=== PATIENT | female | born 1995 | race American Indian/Alaskan Native ===

== ENCOUNTER 2021-01-23 14:18 | Emergency (ER) | payer MEDICAID ==
[2021-01-23] MEDS ORDERED: ONDANSETRON 4 MG/2 ML INJ IV ONE (14:26)
[2021-01-23] MEDS ORDERED: PANTOPRAZOLE 40 MG INJ IV STA (14:26)
[2021-01-23] MEDS ORDERED: SODIUM CHLORIDE 0.9% 1000 ML 1,000 ML IV ONE (14:27)
--- NOTE | 2021-01-23 14:28 | Event Note ---
ED Screening Note ED Screening Note: actively vomiting dark blood in triage hx hhernia and gerd This initial assessment/diagnostic orders/clinical plan/treatment(s) is/are subject to change based on patients health status, clinical progression and re- assessment by fellow clinical providers in the ED. Further treatment and workup at subsequent clinical providers discretion. Patient/guardian urged not to elope from the ED as their condition may be serious if not clinically assessed and managed. Initial orders include: to ER for eval
--- NOTE | 2021-01-23 14:39 | Event Note ---
ED Screening Note ED Screening Note: LMP 11/12 SHE THINKS CO R LOWER ABD PAIN NO N/V/D This initial assessment/diagnostic orders/clinical plan/treatment(s) is/are subject to change based on patients health status, clinical progression and re- assessment by fellow clinical providers in the ED. Further treatment and workup at subsequent clinical providers discretion. Patient/guardian urged not to elope from the ED as their condition may be serious if not clinically assessed and managed. Initial orders include: RO PREG/UTI
[2021-01-23 15:36] LABS: HCG Qualitative,Urine Positive (Negative)
[2021-01-23 15:44] LABS: Bacteria,Urine 1+ /HPF (Negative); Bilirubin,Urine NEG (Negative); Blood,Urine NEG (Negative); Color,Urine Yellow (Yellow); Mucus,Urine FEW /HPF; Protein,Urine <15 mg/dL mg/dL (Negative); Urobilinogen,Urine < 2.0 mg/dL (<2.0)
[2021-01-23 16:04] LABS: Hematocrit 40.3 % (30.3-42.9); Hemoglobin 13.6 gm/dl (10.1-14.3); Mean Corpuscular HGB Conc 34 % (30-34); Mean Corpuscular Volume 96 fl (79-97); Platelet Count 285 K/mm3 (140-440); Red Cell Distribution Width 14.6 % (13.2-15.2)
--- NOTE | 2021-01-23 17:03 | Ultrasound Report ---
US OB <= 14 weeks fetus, US OB transvaginal INDICATION / CLINICAL INFORMATION: cramping . TECHNIQUE: Transvaginal. COMPARISON: None available. FINDINGS: UTERUS: Appears within normal limits. 2.4 cm uterine lesion most consistent with fibroid. GESTATIONAL SAC: Intrauterine gestational sac is present. EMBRYO/FETUS: - [place]-Rump Length = 1.5 cm - Heart Rate, beats per minute (if present) = no heart tones are identified on transvagin al scanning. ADNEXA: No significant abnormality. FREE FLUID: None. ADDITIONAL FINDINGS: None. IMPRESSION: 1. pole is present which measures greater than 7 mm without heart tones which is consiste nt with failed early . Signer Name: Epi Craven MD Signed: 01/23/2021 4:58 PM Workstation Name: [id number]
--- NOTE | 2021-01-23 17:03 | Ultrasound Report ---
US OB <= 14 weeks fetus, US OB transvaginal INDICATION / CLINICAL INFORMATION: cramping . TECHNIQUE: Transvaginal. COMPARISON: None available. FINDINGS: UTERUS: Appears within normal limits. 2.4 cm uterine lesion most consistent with fibroid. GESTATIONAL SAC: Intrauterine gestational sac is present. EMBRYO/FETUS: - [place]-Rump Length = 1.5 cm - Heart Rate, beats per minute (if present) = no heart tones are identified on transvagin al scanning. ADNEXA: No significant abnormality. FREE FLUID: None. ADDITIONAL FINDINGS: None. IMPRESSION: 1. pole is present which measures greater than 7 mm without heart tones which is consiste nt with failed early . Signer Name: Epi Craven MD Signed: 01/23/2021 4:58 PM Workstation Name: [id number]
[2021-01-23 17:34] LABS: Blood Urea Nitrogen 5 mg/dL (7-17); Calcium 9.6 mg/dL (8.4-10.2); Hemolysis Index 10
[2021-01-23 17:42] LABS: BUN/Creatinine Ratio 10
--- NOTE | 2021-01-23 18:28 | Emergency Department Report ---
ED Female HPI - General Chief complaint: Abdominal Pain Stated complaint: ABD PAINS Time Seen by Provider: 01/23/21 14:39 Source: patient Mode of arrival: Ambulatory Limitations: No Limitations - History of Present Illness Initial comments: This is a 25-year-old G1, P0 female presents with a last menstrual as October 2020 stating that for the past couple of days she has felt stomach cramps. Patient states that she feels like she has to have a bowel movement but nothing comes out. Patient denies any fever, chills, nausea, vomiting, vaginal bleed or any problems. Patient states she moved here recently from [place] and has not seen anyone yet for this . Severity scale (0 -10): 2 Quality: cramping Consistency: intermittent Are you Now?: Yes - Related Data Previous Rx's Medication Instructions Recorded Last Taken Type Nitrofurantoin [place]/M-Cryst 100 mg PO Q12HR #14 capsule 01/23/21 Unknown Rx [Macrobid CAP] Allergies Allergy/AdvReac Type Severity Reaction Status Date / Time No Known Allergies Allergy Unverified 01/23/21 14:42 ED Review of Systems ROS: Stated complaint: ABD PAINS Other details as noted in HPI Comment: All other systems reviewed and negative ED Past Medical Hx - Past Medical History Previous Medical History?: No - Surgical History Past Surgical History?: No - Social History Smoking Status: Never Smoker Substance Use Type: None - Medications Home Medications: Home Medications Medication Instructions Recorded Confirmed Last Taken Type Nitrofurantoin [place]/M-Cryst 100 mg PO Q12HR #14 capsule 01/23/21 Unknown Rx [Macrobid CAP] ED Physical Exam - General Limitations: No Limitations General appearance: alert, in no apparent distress - Head Head exam: Present: atraumatic, normocephalic - Eye Eye exam: Present: normal appearance - ENT ENT exam: Present: mucous membranes moist - Neck Neck exam: Present: normal inspection - Respiratory Respiratory exam: Present: normal lung sounds bilaterally. Absent: respiratory distress, wheezes, rales, chest wall tenderness - Cardiovascular Cardiovascular Exam: Present: regular rate, normal rhythm. Absent: systolic murmur, diastolic murmur, rubs, gallop - GI/Abdominal GI/Abdominal exam: Present: soft, normal bowel sounds. Absent: distended, tenderness, guarding, rebound - Extremities Exam Extremities exam: Present: normal inspection - Back Exam Back exam: Present: normal inspection - Neurological Exam Neurological exam: Present: alert, oriented X3 - Psychiatric Psychiatric exam: Present: normal affect, normal mood - Skin Skin exam: Present: warm, dry, intact, normal color. Absent: rash ED Course Vital Signs 01/23/21 01/23/21 14:43 20:23 Temperature 97.9 F Pulse Rate 71 84 Respiratory 18 12 Rate Blood Pressure 104/63 Blood Pressure 114/74 [Left] O2 Sat by Pulse 100 100 Oximetry ED Medical Decision Making - Lab Data Result diagrams: 01/23/21 15:50 01/23/21 15:50 Laboratory Last Values WBC 6.2 K/mm3 (4.5-11.0) 01/23/21 15:50 RBC 4.20 M/mm3 (3.65-5.03) 01/23/21 15:50 Hgb 13.6 gm/dl (10.1-14.3) 01/23/21 15:50 Hct 40.3 % (30.3-42.9) 01/23/21 15:50 MCV 96 fl (79-97) 01/23/21 15:50 MCH 32 pg (28-32) 01/23/21 15:50 MCHC 34 % (30-34) 01/23/21 15:50 RDW 14.6 % (13.2-15.2) 01/23/21 15:50 Plt Count 285 K/mm3 (140-440) 01/23/21 15:50 Sodium 137 mmol/L (137-145) 01/23/21 15:50 Potassium 4.0 mmol/L (3.6-5.0) 01/23/21 15:50 Chloride 102.1 mmol/L (98-107) 01/23/21 15:50 Carbon Dioxide 26 mmol/L (22-30) 01/23/21 15:50 Anion Gap 13 mmol/L 01/23/21 15:50 BUN 5 mg/dL (7-17) L 01/23/21 15:50 Creatinine 0.5 mg/dL (0.6-1.2) L 01/23/21 15:50 Estimated GFR > 60 ml/min 01/23/21 15:50 BUN/Creatinine Ratio 10 % 01/23/21 15:50 Glucose 89 mg/dL (65-100) 01/23/21 15:50 Calcium 9.6 mg/dL (8.4-10.2) 01/23/21 15:50 HCG, Quant 68771 mIU/mL (0-4) H 01/23/21 15:50 Urine Color Yellow (Yellow) 01/23/21 15: Urine Turbidity Slightly-cloudy (Clear) 01/23/21 15: Urine pH 7.0 (5.0-7.0) 01/23/21 15: Ur Specific [place] 1.011 (1.003-1.030) 01/23/21 15: Urine Protein <15 mg/dl mg/dL (Negative) 01/23/21: Urine Glucose (UA) Neg mg/dL (Negative) 01/23/21: Urine Ketones Tr mg/dL (Negative) 01/23/21 15: Urine Blood Neg (Negative) 01/23/21 15: Urine Nitrite Neg (Negative) 01/23/21: Ur Reducing Substances Not Reportable 01/23/21: Urine Bilirubin Neg (Negative) 01/23/21 15: Urine Ictotest Not Reportable 01/23/21: Urine Urobilinogen < 2.0 mg/dL (<2.0) 01/23/21 15: Ur Leukocyte Esterase Mod (Negative) 01/23/21 15: Urine WBC (Auto) 3.0 /HPF (0.0-6.0) 01/23/21 15: Urine RBC (Auto) 2.0 /HPF (0.0-6.0) 01/23/21: U Epithel Cells (Auto) 9.0 /HPF (0-13.0) 01/23/21 15: Urine Bacteria (Auto) 1+ /HPF (Negative) 01/23/21: Urine Mucus Few /HPF 01/23/21 15: Urine HCG, Qual Positive (Negative) A 01/23/21 15: Blood Type A POSITIVE 01/23/21 15:43 Ord Rhogam Gestat Weeks Rh pos WEEKS 01/23/21 15:43 - Radiology Data Radiology results: report reviewed, image reviewed US OB <= 14 weeks fetus, US OB transvaginal INDICATION / CLINICAL INFORMATION: cramping . TECHNIQUE: Transvaginal. COMPARISON: None available. FINDINGS: UTERUS: Appears within normal limits. 2.4 cm uterine lesion most consistent with fibroid. GESTATIONAL SAC: Intrauterine gestational sac is present. EMBRYO/FETUS: - [place]-Rump Length = 1.5 cm - Heart Rate, beats per minute (if present) = no heart tones are identified on transvaginal scanning. ADNEXA: No significant abnormality. FREE FLUID: None. ADDITIONAL FINDINGS: None. IMPRESSION: 1. pole is present which measures greater than 7 mm without heart tones which is consistent with failed early . Signer Name: Epi Craven MD Signed: 01/23/2021 4:58 PM Workstation Name: [id number] Transcribed By: CS Dictated By: Epi Craven MD Electronically Authenticated By: Epi Craven MD Signed Date/Time: 01/23/21 4661 - Medical Decision Making 25-year-old female presents to ED with cystitis during ED course: Pt received ultra sound, CBC, urinalysis, test and quantitative ED All labs within normal limits, quantitative elevated at about 23,000 Patient states she she will follow-up with [facility] as referred. Repeat discussed with patient may return for follow-up in 2 to 3 days with the [facility]. Ultrasound shows pole with no heart rate suggestive of early .. See reported above Vital signs normalized patient is in no acute distress. I discussed with the patient to follow-up with her [facility]. I discussed all labs and ultrasound findings with the patient. will treat for UTI. I discussed with the patient that he if bleeding worsens or new symptoms develop to return to ED immediately Critical care attestation.: If time is entered above; I have spent that time in minutes in the direct care of this critically ill patient, excluding procedure time. ED Disposition Clinical Impression: Cystitis, test positive Disposition: DC-01 TO HOME OR SELFCARE Is pt being admited?: No Does the pt Need Aspirin: No Condition: Stable Instructions: Care, and Urinary Tract Infection, Abdominal Pain (ED) Additional Instructions: Make sure to follow up with the [facility] as discussed. Take all your medications as you've been prescribed. If you have any worsening symptoms or develop new symptoms please return to ED immediately. Prescriptions: Nitrofurantoin [place]/M-Cryst [Macrobid CAP] 100 mg PO Q12HR #14 capsule Referrals: [facility]IMARY [facility] [Primary Care Provider] - 3-5 Days [facility] [Provider Group] - 3-5 Days [facility] [Provider Group] - 3-5 Days Forms: Work/School Release Form(ED) Time of Disposition: 20:03
[2021-01-23 20:24] VITALS: BP 114/74
== END 2021-01-23 20:24 | disposition home or self-care (01) ==
LOC: ED 14:18
DX: N30.90 Cystitis, unspecified without hematuria (principal); Z32.01 Encounter for pregnancy test, result positive
CPT/HCPCS: 36415; 76801; 76817; 80048; 81001; 81025; 84702; 85027; 86900; 86901